=== PATIENT | female | born 1955 | race African-American/Black ===

== ENCOUNTER → 2021-02-07 | Outpatient (CLI) | payer MEDICARE ==
[2015-07-26 08:45] VITALS: BP 124/73
[~2021-02-07] MED LIST: FLUT9.9S NS; TRAZ-123 PO; TRAZADONE
--- NOTE | 2021-02-12 11:16 | CARD ---
MR#: [id number] Date of Study: 02/07/2021 Ordering Physician: MENDY LEGGETT, Referring Physician: Rick CARCAMO: Christelle Oviedo RDCS APPROVED REPORT INDICATION Dyspnea PROCEDURE The patient underwent an Exercise Stress Test using the Korey Protocol. Blood pressure, heart rate, a nd EKG were monitored. An Echocardiogram was performed by deployment technician in four stages in quad fashion. At peak stress four se lected images were obtained and placed side by side with resting images for comparison. STRESS ECHO FINDINGS The resting Echocardiogram showed normal left ventricular systolic contractility with an estimated Ej ection Fraction of about 55 %. The Resting Echocardiogram showed normal augmentation of myocardial wall segments using a 16 segment model. The Stress Echocardiogram showed normal augmentation of myocardial wall segments using a 16 segment m justus. The Stress Echocardiogram left ventricular systolic contractility has an estimated Ejection Fraction of about 65%. Test Type: Exercise POST EXERCISE Reason for Termination: Reaching target heart rate Target HR: 131 Max HR: 155 bpm 100% of Maximum Predicted HR: 154 bpm Exercise duration: 6:29 min:sec, Stage Blood Pressure response to exercise: Normal blood pressure response during stress. INTERPRETATION Stress EKG Conclusion: 1. Resting EKG shows a sinus rhythm with mild nonspecific ST segment changes. 2. Stress EKG shows further mild ST segment changes that are not diagnostic of ischemia. 3. No EKG evidence of stress-induced ischemia. <Conclusion> Good exercise tolerance with the patient walking for 6 minutes and 29 seconds on a Korey protocol. Appropriate heart rate response to exertion. No EKG evidence of stress-induced ischemia. Normal LV systolic function at rest. Normal LV systolic response to exertion with no regional wall motion abnormalities. Low risk treadmill stress echo. Signed by : Irving Romero MD Electronically Approved : 02/12/2021 11:16:20
== END ==
LOC: ECHO 13:05
PROVIDERS: ATTEND Internal Medicine Cardiovascular Disease
DX: R07.9 Chest pain, unspecified (principal)
CPT/HCPCS: 93017; 93350